=== PATIENT | female | born 1970 | race Native Hawaiian/Other Pacific Islander ===

== ENCOUNTER 2016-10-06 13:05 | Day surgery (SDC) | payer OTHER, BC ==
[2016-10-06] MEDS ORDERED: LACTATED RINGERS 1,000 ML IV ONE (13:38)
[2016-10-06] MEDS ORDERED: ONDANSETRON 4 MG/2 ML VIAL ONE (13:47)
[2016-10-06] MEDS ORDERED: MIDAZOLAM 2 MG/2 ML VIAL IVP ONE (15:21)
[2016-10-06] MEDS ORDERED: fentaNYL 250 MCG/5 ML VIAL IVP ONE (15:21)
== END 2016-10-06 13:06 | disposition home or self-care (01) ==
PROC: 0DJD8ZZ Inspection of Lower Intestinal Tract, Via Natural or Artificial Opening Endoscopic (ICD-10-PCS; principal; 2016-10-06 14:15)
DX: Z12.11 Encounter for screening for malignant neoplasm of colon (principal); Z86.010 Personal history of colon polyps; I10 Essential (primary) hypertension; Z88.0 Allergy status to penicillin
CPT/HCPCS: 45378; J3010; J7120

== ENCOUNTER 2017-03-07 05:13 | Emergency (ER) | payer BC, OTHER ==
[2017-03-07 05:42] LABS: BASOPHILS # (AUTO) 0.2 10^3/uL (0.0-0.1); BASOPHILS % (AUTO) 2.3 %; EOSINOPHILS # (AUTO) 0.4 10^3/uL (0.0-0.7); EOSINOPHILS % (AUTO) 4.8 %; HGB - HEMOGLOBIN 14.1 g/dL (12.0-16.0); LYMPHOCYTES # (AUTO) 4.1 10^3/uL (1.5-3.5); LYMPHOCYTES % (AUTO) 47.4 %; MEAN CORPUSCULAR HEMOGLOBIN 28.5 pg (27.0-31.0); MEAN CORPUSCULAR HGB CONC 33.5 g/dL (32.0-36.0); MEAN CORPUSCULAR VOLUME 85.2 fL (81.0-99.0); MONOCYTES # (AUTO) 0.9 10^3/uL (0.0-1.0); NEUTROPHILS % (AUTO) 35.5 %; RED BLOOD COUNT 4.93 10^6/uL (4.20-5.40); RED CELL DISTRIBUTION WIDTH 13.5 % (12.0-15.0); UNCORRECTED WHITE BLOOD COUNT 8.5 x10^3/uL; WHITE BLOOD COUNT 8.5 x10^3/uL (4.8-10.8)
[2017-03-07 05:49] LABS: ALBUMIN/GLOBULIN RATIO 1.3 (1.0-2.2); BILIRUBIN,TOTAL < 0.2 mg/dL (0.2-1.0); BUN - BLOOD UREA NITROGEN 12 mg/dL (6-20); CALCIUM 8.9 mg/dL (8.5-10.3); CARBON DIOXIDE - CO2 28 mmol/L (21-32); CHLORIDE 103 mmol/L (101-111); CREATININE 0.9 mg/dL (0.4-1.0); GFR - MDRD 67 (>89); GLUCOSE 119 mg/dL (70-100); LIPASE 28 U/L (22-51); POTASSIUM 3.5 mmol/L (3.5-5.0); SODIUM 139 mmol/L (135-145); TOTAL PROTEIN 7.2 g/dL (6.7-8.2)
[2017-03-07] MEDS ORDERED: HYDROmorphone 1 MG/ML SYRINGE IVP STA (05:49)
[2017-03-07] MEDS ORDERED: ONDANSETRON 4 MG/2 ML VIAL IVP STA (05:49)
[2017-03-07] MEDS ORDERED: ONDANSETRON 4 MG/2 ML VIAL ONE (05:55)
[2017-03-07] MEDS ORDERED: HYDROmorphone 1 MG/ML SYRINGE ONE (05:55)
--- NOTE | 2017-03-07 05:59 | ED Physician Documentation ---
PD HPI ABD PAIN - Stated complaint Stated Complaint: ABDOMINAL PAIN - Chief complaint Chief Complaint: Abd Pain - History obtained from History obtained from: Patient, Family - History of Present Illness Timing - onset: Enter time (329), Today Timing - duration: Hours Timing - details: Abrupt onset, Still present Quality: Cramping, Sharp, Pain Location: Periumbilical Improved by: Laying still Worsened by: Moving, Breathing, Position, Palpation Associated symptoms: No: Fever, Nausea, Vomiting, Diarrhea, Constipation Similar symptoms before: Has not had sx before Recently seen: Not recently seen - Additional information Additional information: 46 y/o female previously well awoke at 330 am this morning when she rolled over in bed and felt a sudden tearing in her mid abdomen. She felt like her muscles and the pain was severe. She has had persistent pain since and she has worse pain when she is sitting up. She has not had vomiting or diarrhea and was well yesterday. She did do some work with her on a fence and she did put a bale of hay in the truck and she did not have symptoms when she was doing this. Review of Systems Constitutional: denies: Fever, Chills, Myalgias Eyes: denies: Decreased vision Ears: denies: Ear pain Nose: denies: Rhinorrhea / runny nose, Congestion Throat: denies: Sore throat Cardiac: denies: Chest pain / pressure, Palpitations Respiratory: denies: Dyspnea, Cough GI: reports: Abdominal Pain. 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 - Present Medications Home Medications: Ambulatory Orders Medication Instructions Recorded Confirmed Metoprolol Succinate 25 mg PO DAILY 10/06/16 03/07/17 - Allergies Allergies/Adverse Reactions: Allergies Allergy/AdvReac Type Severity Reaction Status Date / Time Penicillins AdvReac Itching Verified 03/07/17 05:23 - Social History Does the pt smoke?: No Smoking Status: Never smoker Does the pt drink ETOH?: Yes Does the pt have substance abuse?: No - Immunizations Immunizations are current?: Yes - POLST Patient has POLST: No PD ED PE NORMAL - Vitals Vital signs reviewed: Yes (hypertensive ) - General General: Alert and oriented X 3, No acute distress, Well developed/nourished - HEENT HEENT: Atraumatic, PERRL, EOMI - Neck Neck: Supple, no meningeal sign - Cardiac Cardiac: RRR, No murmur - Respiratory Respiratory: No respiratory distress, Clear bilaterally - Abdomen Abdomen: Soft, Other (There is epigastric tenderness and specific tenderness to the periumbilical area. There is + murphys sign and there is no palpable hernia defect. The area is tender specifically There is no flank tenderness to bimanual palpation of either kidney. ) - Back Back: No CVA TTP, No spinal TTP - Derm Derm: Normal color, Warm and dry, No rash - Extremities Extremities: No deformity, No edema - Neuro Neuro: No motor deficit, No sensory deficit - Psych Psych: Normal mood, Normal affect Results - Vitals Vitals: Vital Signs - 24 hr 03/07/17 03/07/17 05:20 06:30 Temperature 36.6 C Heart Rate 75 73 Respiratory 18 18 Rate Blood Pressure 164/97 H 156/93 H O2 Saturation 99 93 Oxygen O2 Source Room air - Labs Labs: Laboratory Tests 03/07/17 03/07/17 03/07/17 05:29 05:29 06:41 WBC 8.5 RBC 4.93 Hgb 14.1 Hct 42.0 MCV 85.2 MCH 28.5 MCHC 33.5 RDW 13.5 Plt Count 301 MPV 8.0 Neut # 3.0 Lymph # 4.1 H [place] # 0.9 Eos # 0.4 Baso # 0.2 H Absolute Nucleated RBC 0.00 Nucleated RBCs 0.0 Sodium 139 Potassium 3.5 Chloride 103 Carbon Dioxide 28 Anion Gap 8.0 BUN 12 Creatinine 0.9 Estimated GFR (MDRD) 67 L Glucose 119 H Calcium 8.9 Total Bilirubin < 0.2 L AST 17 ALT 22 Alkaline Phosphatase 69 Total Protein 7.2 Albumin 4.1 Globulin 3.1 Albumin/Globulin Ratio 1.3 Lipase 28 Urine Color YELLOW Urine Clarity CLEAR Urine pH 6.0 Ur Specific [place] 1.010 Urine Protein NEGATIVE Urine Glucose (UA) NEGATIVE Urine Ketones NEGATIVE Urine Occult Blood NEGATIVE Urine Nitrite NEGATIVE Urine Bilirubin NEGATIVE Urine Urobilinogen 0.2 (NORMAL) Ur Leukocyte Esterase NEGATIVE Ur Microscopic Review NOT INDICATED Urine Culture Comments NOT INDICATED Urine HCG, Qual NEGATIVE - Rads (name of study) CT abdomen and pelvis with Radiology: Prelim report reviewed (Impression: 1. No acute inflammatory or obstructive process in the pelvis. 2. Cholelithiasis. 3. Mild fatty liver. 4. Fibroid uterus.), EMP read indepedently, See rad report pelvic ultrasound Radiology: Prelim report reviewed (Impression: 1. Mildly enlarged myomatous uterus. 2. Normal ovaries.), EMP read indepedently, See rad report Procedures - Bedside sono Bedside sono by EMP: with the use of bedside ultrasound there is a lot of gas and what is seen of the gallbladder is unremarkable but not entirely visualized and the gallbladder is sonographically tender. PD MEDICAL DECISION MAKING - ED course Complexity details: reviewed old records, reviewed results, re-evaluated patient , considered differential, d/w patient, d/w family ED course: 46 y/o female with acute episode of severe pain has poorly localized pain and pain on exam is RUQ and periumbilical and is not reproducible. Her description of the pain is dramatic. A concern for adriana-umbilical hernia is considered and CT shows stones in the gallbladder and a large fibroid uterus. After medication the patient has no RUQ pain but she does have suprapubic pain and an ultrasound of the pelvis is obtained. The pain resolves completely and I have recommended to the patient that she had an ultrasound of the gallbladder done as an outpatient and followup with the surgeon. Departure - Departure Disposition: 01 Home, Self Care Clinical Impression: Cholelithiasis Qualifiers: Cholelithiasis location: gallbladder Cholecystitis presence: without cholecystitis Biliary obstruction: without biliary obstruction Qualified Code(s) : K80.20 - Calculus of gallbladder without cholecystitis without obstruction Condition: Stable Instructions: ED Gallstone W Biliary Colic Follow-Up: Kenyatta Suazo PA-C [Primary Care Provider] - Stewart Ty MD [Provider Admit Priv/Credential] - Comments: You will need to follow up with Kenyatta Suazo to get requisition for outpatient ultrasound of the gallbladder.
[2017-03-07] MEDS ORDERED: IOPAMIDOL-300 100 ML VIAL IVP ONE (06:48)
[2017-03-07 06:54] LABS: BILIRUBIN,URINE NEGATIVE (NEGATIVE)
--- NOTE | 2017-03-07 06:55 | CT Preliminary Report ---
Exam: CT Abdomen/Pelvis W/ IMPRESSION: 1. No acute inflammatory or obstructive process seen in the abdomen or pelvis. 2. Cholelithiasis. 3. Mildly fatty liver. 4. Fibroid uterus. [facility] SITE ID: [id number]
[2017-03-07 06:56] LABS: HCG UR QUAL NEGATIVE; UA CHARGE (STRIP ONLY) YES; UR CULTURE IF IND NOT INDICATED
--- NOTE | 2017-03-07 06:58 | CT Report ---
EXAM: CT ABDOMEN AND PELVIS EXAM DATE: 03/07/2017 06:41 AM. CLINICAL HISTORY: Midline tearing abdominal pain . COMPARISONS: Pelvic ultrasound 08/23/2016. TECHNIQUE: Routine helical CT imaging was performed through the abdomen and pelvis. IV contrast: Yes . Enteric contrast: No . Reconstructions: Coronal and sagittal. In accordance with CT protocol optimization, one or more of the following dose reduction techniques w ere utilized for this exam: automated exposure control, adjustment of mA and/or KV based on patient s ize, or use of iterative reconstructive technique. FINDINGS: Lung Bases: Unremarkable. Liver: Fatty. No suspicious masses. Gallbladder/Bile Ducts: Suspect small gallstones without evidence of cholecystitis or biliary ductal dilatation. Spleen: Unremarkable. Pancreas: Unremarkable. Adrenal Glands: Unremarkable. Kidneys: Unremarkable. No suspicious masses or hydronephrosis. Peritoneal Cavity/Bowel: No bowel obstruction or inflammatory process seen. No free air or significan t free fluid. No masses or adenopathy. The appendix is normal. No excessive stool burden. Pelvic Organs: Bladder, uterus, and adnexa appear unremarkable with exception of multiple uterine fib roids measuring up to 5 cm on the left. Vasculature: No aneurysms or other significant abnormality. Bones: No significant abnormality with note of mild scoliosis. Other: None. IMPRESSION: 1. No acute inflammatory or obstructive process seen in the abdomen or pelvis. 2. Cholelithiasis. 3. Mildly fatty liver. 4. Fibroid uterus. [facility] Referring Provider Line: [phone] SITE ID: [id number]
--- NOTE | 2017-03-07 08:32 | Ultrasound Preliminary Report ---
Exam: US Pelvic w/Transvaginal IMPRESSION: 1. Mildly enlarged myomatous uterus. 2. Normal ovaries. [facility] SITE ID: [id number]
--- NOTE | 2017-03-07 08:34 | Ultrasound Report ---
EXAM: PELVIC ULTRASOUND EXAM DATE: 03/07/2017 08:05 AM. CLINICAL HISTORY: Pelvic mass and pain. G2, P 2. COMPARISON: 03/07/2017. 08/23/2016. TECHNIQUE: Realtime transabdominal pelvic scan performed to identify the uterus and adnexa and as an overview of other pelvic structures, followed by transvaginal scan to provide greater detail of the u terus and adnexa, with static image documentation. FINDINGS: Uterus: 9.7 x 5.4 x 7.2 cm, volume 197 cc. Anteverted position. Enlarged. Heterogeneous. Masses: Numerous uterine myomas are noted. The best delineated as described below: 1. Posterior transmural, 3.9 x 3.6 x 3.2 cm. 2. Posterior intramural/subserosal, 4.5 x 3.3 x 3.6 cm. 3. Anterior intramural/subserosal, 3.3 x 3.5 x 2.6cm. Endometrium: 4-5 mm. Homogeneous echotexture. Cervix: Clusters of cysts are seen in the cervix measuring overall size 2.1 x 1.6 x 1.0 cm representi ng nabothian cyst. Right Ovary: 3.4 x 1.8 x 1.6 cm, volume 5.1 cc. Normal echotexture and blood flow. Left Ovary: 3.4 x 2.3 x 1.8 cm, volume 7.3 cc. Normal echotexture and blood flow. Free Fluid: None. Other: None. IMPRESSION: 1. Mildly enlarged myomatous uterus. 2. Normal ovaries. [facility] Referring Provider Line: [phone] SITE ID: [id number]
[2017-03-07 08:51] VITALS: BP 160/100
== END 2017-03-07 08:47 | disposition home or self-care (01) ==
LOC: ED 05:13
DX: K80.20 Calculus of gallbladder without cholecystitis without obstruction (principal); D25.9 Leiomyoma of uterus, unspecified; I10 Essential (primary) hypertension
CPT/HCPCS: 36415; 74177; 76830; 76856; 80053; 81003; 81025; 83690; 85025; 96374; 96375; 99283; 99285; J1170; Q9967; 81001; 87086

== ENCOUNTER 2017-03-17 08:11 | Outpatient (CLI) | payer OTHER ==
--- NOTE | 2017-03-17 10:29 | Ultrasound Report ---
REVISED: THIS REPORT WAS ORIGINALLY SIGNED ON 03/17/2017 @ 1109. ORDERS LINKED ON 04/11/2017. RIGHT UPPER QUADRANT ULTRASOUND WITH DOPPLER: 03/17/2017 CLINICAL INDICATION: Pain. TECHNIQUE: Ultrasound of the right upper quadrant was performed, with Doppler of the main portal vein. FINDINGS: The liver measures 16.3 cm. Hepatic echogenicity is increased, compatible with fatty infiltration. The main portal vein demonstrates hepatopetal flow. No focal hepatic lesion is seen. The gallbladder demonstrates sludge. No definite calculus is identified. No wall thickening or pericholecystic fluid is present. The common bile duct measures 5 mm. The right kidney measures 12.2 cm, and demonstrates no hydronephrosis. No free fluid is present. IMPRESSION: FATTY INFILTRATION OF THE LIVER. SLUDGE WITHIN THE GALLBLADDER, BUT NO EVIDENCE OF CHOLELITHIASIS OR BILIARY OBSTRUCTION. JOB #: [id number] EXT JOB #: [id number] [facility]
== END 2017-03-17 08:12 | disposition home or self-care (01) ==
LOC: DI 08:11
PROVIDERS: ATTEND Physician Assistant Medical
DX: K76.0 Fatty (change of) liver, not elsewhere classified (principal)
CPT/HCPCS: 76705; 93976

== ENCOUNTER 2017-07-12 09:21 | Outpatient (CLI) | payer OTHER ==
[2017-07-12 10:17] LABS: BASOPHILS # (AUTO) 0.1 10^3/uL (0.0-0.1); BASOPHILS % (AUTO) 1.8 %; EOSINOPHILS # (AUTO) 0.2 10^3/uL (0.0-0.7); EOSINOPHILS % (AUTO) 3.9 %; HCT - HEMATOCRIT 44.5 % (37.0-47.0); HGB - HEMOGLOBIN 14.7 g/dL (12.0-16.0); LYMPHOCYTES # (AUTO) 2.3 10^3/uL (1.5-3.5); LYMPHOCYTES % (AUTO) 37.7 %; MEAN CORPUSCULAR HEMOGLOBIN 27.9 pg (27.0-31.0); MEAN CORPUSCULAR HGB CONC 33.1 g/dL (32.0-36.0); MEAN CORPUSCULAR VOLUME 84.3 fL (81.0-99.0); MEAN PLATELET VOLUME 7.9 fL (7.9-10.8); MONOCYTES # (AUTO) 0.5 10^3/uL (0.0-1.0); MONOCYTES % (AUTO) 7.8 %; NEUTROPHILS % (AUTO) 48.8 %; NUCLEATED RED BLOOD CELLS AUTO 0.1 /100WBC; RED BLOOD COUNT 5.28 10^6/uL (4.20-5.40); RED CELL DISTRIBUTION WIDTH 13.8 % (12.0-15.0); UNCORRECTED WHITE BLOOD COUNT 6.2 x10^3/uL; WHITE BLOOD COUNT 6.2 x10^3/uL (4.8-10.8)
[2017-07-12 10:37] LABS: ALBUMIN/GLOBULIN RATIO 1.5 (1.0-2.2); BILIRUBIN,TOTAL 0.7 mg/dL (0.2-1.0); BUN - BLOOD UREA NITROGEN 12 mg/dL (6-20); CALCIUM 9.2 mg/dL (8.5-10.3); CARBON DIOXIDE - CO2 28 mmol/L (21-32); CHLORIDE 104 mmol/L (101-111); CHOL/HDL RATIO 4.2 (<4.4); CHOLESTEROL 227 mg/dL; CREATININE 0.8 mg/dL (0.4-1.0); GFR - MDRD 77 (>89); GLUCOSE 104 mg/dL (70-100); HDL CHOLESTEROL 54 mg/dL; LDL/HDL RATIO 2.4 (<4.4); POTASSIUM 4.1 mmol/L (3.5-5.0); SODIUM 139 mmol/L (135-145); TOTAL PROTEIN 7.5 g/dL (6.7-8.2); TRIGLYCERIDES 207 mg/dL; VLDL CHOLESTEROL 41 mg/dL
[2017-07-12 10:45] LABS: HEMOGLOBIN A1C 0.73 g/dL
== END 2017-07-12 09:22 | disposition home or self-care (01) ==
LOC: LAB 09:21
PROVIDERS: ATTEND Physician Assistant Medical
DX: Z00.00 Encounter for general adult medical examination without abnormal findings (principal); R73.9 Hyperglycemia, unspecified; I10 Essential (primary) hypertension; Z79.899 Other long term (current) drug therapy
CPT/HCPCS: 36415; 80053; 80061; 83036; 84443; 85025

== ENCOUNTER 2017-07-13 15:54 | Outpatient (CLI) | payer OTHER ==
[2017-07-13 16:21] LABS: H. PYLORI IGG ANTIBODY Negative (Negative); HPYLORI NEG QC Negative (Negative); HPYLORI POS QC POSITIVE (Positive)
== END 2017-07-13 15:55 | disposition home or self-care (01) ==
LOC: LAB 15:54
PROVIDERS: ATTEND Radiology Diagnostic Radiology
DX: R10.11 Right upper quadrant pain (principal)
CPT/HCPCS: 36415; 85651; 86140; 87339

== ENCOUNTER 2017-07-15 08:54 | Outpatient (CLI) | payer OTHER ==
[2017-07-15] MEDS ORDERED: SINCALIDE 5 MCG VIAL ONE (09:37)
--- NOTE | 2017-07-15 11:58 | Nuclear Medicine Prelim Report ---
Exam: NM HEPATOBILIARY HIDA W/ RX IMPRESSION: 1. Patent cystic duct. 2. Patent common bile duct. 3. Negative for acute or chronic cholecystitis. 4. No enterogastric bile reflux. 5. Normal gallbladder ejection fraction of 68%. DONOVAN The call report notification system was initiated by Dr. Ricardo Hobbs at 11:50 hrs on 07/15/17. The above findings were discussed with Dr. Spencer's medical assistant cardiology by Dr. Ricardo Hobbs at 11:56 hrs on 07/15/17. SITE ID: [id number]
--- NOTE | 2017-07-15 12:00 | Nuclear Medicine Report ---
EXAM: HEPATOBILIARY SCAN WITH CCK/KINEVAC ADMINISTRATION EXAM DATE: 07/15/2017 09:17 AM. CLINICAL HISTORY: RUQ ABDOMINAL PAIN. COMPARISON: Ultrasound exam dated 03/17/2017. TECHNIQUE: Following the intravenous administration of 5.3 mCi of Tc99m Mebrofenin, a hepatobiliary s can was done centered on the liver and gallbladder in multiple sequential images and projections. Following the intravenous administration of 1.9 mcg of CCK/ Kinevac over the course of approximately 60 minutes, dynamic imaging was done and the gallbladder ejection fraction was calculated. FINDINGS: Normal extraction of tracer from the blood pool indicating normal hepatocellular function. The liver size and shape is grossly within normal limits. There is activity visualized within the bile ducts and gallbladder within the first hour. Small bowel activity not visualized until after CCK was administered. With CCK administration, the gallbladder demonstrates an effective contraction. The gallbladder eject ion fraction is calculated to be 78%, well above the lower limit of normal of 38% for a 60-minute inj ection. The patient did not report symptoms after CCK administration. No evidence of enteric reflux into the stomach. No significant collection of tracer remaining in the common bile duct by the end of the study. IMPRESSION: 1. Patent cystic duct. 2. Patent common bile duct. 3. Negative for acute or chronic cholecystitis. 4. No enterogastric bile reflux. 5. Normal gallbladder ejection fraction of 68%. [facility] The call report notification system was initiated by Dr. Ricardo Hobbs at 11:50 hrs on 07/15/17. The above findings were discussed with Dr. Spencer's medical office asst by Dr. Ricardo Hobbs at 11:56 hrs on 07/15/17. Referring Provider Line: [phone] SITE ID: [id number]
== END 2017-07-15 08:55 | disposition home or self-care (01) ==
LOC: DI 08:54
PROVIDERS: ATTEND Surgery
DX: R10.11 Right upper quadrant pain (principal)
CPT/HCPCS: 78227; A9537

== ENCOUNTER 2017-11-22 12:49 | Emergency (ER) | payer OTHER ==
--- NOTE | 2017-11-22 14:21 | ED Physician Documentation ---
PD HPI CHEST PAIN - Stated complaint Stated Complaint: PX IN CHEST/TINGLE IN ARM - Chief complaint Chief Complaint: Cardiac - History obtained from History obtained from: Patient - History of Present Illness Timing - onset: Enter time (1030) Timing - onset during: Light activity Timing - duration: Hours Timing - details: Gradual onset, Now resolved Quality: Throbbing Location: Substernal Radiation: Left upper extremity Improved by: Nothing Worsened by: Other (nothing) Associated symptoms: No: Shortness of air, Diaphoresis, Nausea, Vomiting, Feeling faint / dizzy, General Weakness, Palpitations, Cough Similar symptoms before: Has not had sx before Recently seen: Not recently seen - Additional information Additional information: 47-year-old female has developed some palpitation substernal today while she was sitting at her desk. When she felt that her fingers were numb she told a coworker and she is come to the hospital. She states that she had this sensation for about 2 hours before deciding to come to the hospital and since being here this is resolved. She also notes that she feels out of shape. 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 - Present Medications Home Medications: Ambulatory Orders Medication Instructions Recorded Confirmed Metoprolol Succinate 25 mg PO DAILY 10/06/16 11/22/17 - Allergies Allergies/Adverse Reactions: Allergies Allergy/AdvReac Type Severity Reaction Status Date / Time Penicillins AdvReac Respiratory Verified 11/22/17 13:53 - Social History Does the pt smoke?: No Smoking Status: Never smoker Does the pt drink ETOH?: Yes Does the pt have substance abuse?: No - Immunizations Immunizations are current?: Yes - POLST Patient has POLST: No PD ED PE NORMAL - Vitals Vital signs reviewed: Yes (hypertensive) - General General: Alert and oriented X 3, No acute distress, Well developed/nourished - HEENT HEENT: Atraumatic, PERRL, EOMI, Ears normal, Moist mucous membranes - Neck Neck: Supple, no meningeal sign, No bony TTP - Cardiac Cardiac: RRR, No murmur - Respiratory Respiratory: No respiratory distress, Clear bilaterally - Abdomen Abdomen: Soft, Non tender - Back Back: No CVA TTP, No spinal TTP - Derm Derm: Normal color, Warm and dry, No rash - Extremities Extremities: No deformity, No edema - Neuro Neuro: No motor deficit, No sensory deficit Eye Opening: Spontaneous Motor: Obeys Commands Verbal: Oriented GCS Score: 15 - Psych Psych: Normal mood, Normal affect Results - Vitals Vitals: Vital Signs - 24 hr 11/22/17 11/22/17 12:58 16:45 Temperature 37.2 C Heart Rate 79 74 Respiratory 18 Rate Blood Pressure 175/98 H 121/69 O2 Saturation 100 96 Oxygen O2 Source Room air - EKG (time done) 1256 Rate: Rate (enter#) (71) Rhythm: NSR Ischemia: Normal ST segments Compare to prior EKG: Old EKG unavailable Computer interpretation: Agree with computer - Labs Labs: Laboratory Tests 11/22/17 11/22/17 11/22/17 14:40 14:40 14:40 WBC 7.5 RBC 4.84 Hgb 13.9 Hct 41.0 MCV 84.7 MCH 28.7 MCHC 33.9 RDW 13.2 Plt Count 280 MPV 7.9 Neut # 3.7 Lymph # 2.7 [place] # 0.6 Eos # 0.2 Baso # 0.2 H Absolute Nucleated RBC 0.00 Nucleated RBC % 0.0 Sodium 137 Potassium 4.1 Chloride 103 Carbon Dioxide 26 Anion Gap 8.0 BUN 11 Creatinine 0.8 Estimated GFR (MDRD) 77 L Glucose 100 Calcium 9.1 Total Bilirubin 0.4 AST 20 ALT 27 Alkaline Phosphatase 58 Troponin I < 0.04 Total Protein 7.2 Albumin 4.3 Globulin 2.9 Albumin/Globulin Ratio 1.5 Lipase 29 Urine Color Urine Clarity Urine pH Ur Specific [place] Urine Protein Urine Glucose (UA) Urine Ketones Urine Occult Blood Urine Nitrite Urine Bilirubin Urine Urobilinogen Ur Leukocyte Esterase Ur Microscopic Review Urine Culture Comments Urine HCG, Qual 11/22/17 11/22/17 15:01 16:11 WBC RBC Hgb Hct MCV MCH MCHC RDW Plt Count MPV Neut # Lymph # [place] # Eos # Baso # Absolute Nucleated RBC Nucleated RBC % Sodium Potassium Chloride Carbon Dioxide Anion Gap BUN Creatinine Estimated GFR (MDRD) Glucose Calcium Total Bilirubin AST ALT Alkaline Phosphatase Troponin I < 0.04 Total Protein Albumin Globulin Albumin/Globulin Ratio Lipase Urine Color STRAW Urine Clarity CLEAR Urine pH 6.0 Ur Specific [place] 1.010 Urine Protein NEGATIVE Urine Glucose (UA) NEGATIVE Urine Ketones NEGATIVE Urine Occult Blood NEGATIVE Urine Nitrite NEGATIVE Urine Bilirubin NEGATIVE Urine Urobilinogen 0.2 (NORMAL) Ur Leukocyte Esterase NEGATIVE Ur Microscopic Review NOT INDICATED Urine Culture Comments NOT INDICATED Urine HCG, Qual NEGATIVE - Rads (name of study) 2 veiw chest Radiology: Prelim report reviewed (Impression: 1. Low lung volumes with unchanged linear basilar opacities likely reflecting atelectasis.), EMP read indepedently, See rad report Procedures - IVC sono (time) 1400 Bedside IVC sono: IVC measures (cm) (0.88), IVC collapsed c insp (cm) (complete) , Dehydration (est 2 liters.) PD MEDICAL DECISION MAKING - ED course Complexity details: reviewed results, re-evaluated patient, considered differential, d/w patient ED course: 47-year-old previously healthy female has developed some throbbing in her chest and she is found to be dehydrated and she is hypertensive. She is hydrated here in the emergency department we did not find other abnormalities in her laboratory tests x-ray or electrocardiogram.She denies alcohol withdrawal is a possibility she does not drink frequently and she usually does have water at her desk but over the past 3 days she was scrapbooking and she did not work yesterday. She believes she did not have her usual amount of water over the past 3 days. Departure - Departure Disposition: 01 Home, Self Care Clinical Impression: Atypical chest pain Condition: Stable Instructions: ED Chest Pain Atypical Unkn Cause Follow-Up: Kenyatta Suazo PA-C [Primary Care Provider] - Comments: Today we found that you are dehydrated but we did not find evidence for coronary disease. Follow-up with your primary care doctor to consider an exercise treadmill test.
[2017-11-22] MEDS ORDERED: SODIUM CHLORIDE 0.9% 1,000 ML IV ONE (14:47)
[2017-11-22 15:02] LABS: BASOPHILS # (AUTO) 0.2 10^3/uL (0.0-0.1); BASOPHILS % (AUTO) 2.4 %; EOSINOPHILS # (AUTO) 0.2 10^3/uL (0.0-0.7); EOSINOPHILS % (AUTO) 3.1 %; HGB - HEMOGLOBIN 13.9 g/dL (12.0-16.0); LYMPHOCYTES # (AUTO) 2.7 10^3/uL (1.5-3.5); LYMPHOCYTES % (AUTO) 36.8 %; MEAN CORPUSCULAR HEMOGLOBIN 28.7 pg (27.0-31.0); MEAN CORPUSCULAR HGB CONC 33.9 g/dL (32.0-36.0); MEAN CORPUSCULAR VOLUME 84.7 fL (81.0-99.0); MEAN PLATELET VOLUME 7.9 fL (7.9-10.8); MONOCYTES # (AUTO) 0.6 10^3/uL (0.0-1.0); MONOCYTES % (AUTO) 8.1 %; NEUTROPHILS # (AUTO) 3.7 10^3/uL (1.5-6.6); NEUTROPHILS % (AUTO) 49.6 %; PLT - PLATELET COUNT 280 10^3/uL (130-450); RED BLOOD COUNT 4.84 10^6/uL (4.20-5.40); RED CELL DISTRIBUTION WIDTH 13.2 % (12.0-15.0); WHITE BLOOD COUNT 7.5 x10^3/uL (4.8-10.8)
[2017-11-22 15:12] LABS: ALBUMIN 4.3 g/dL (3.2-5.5); ALBUMIN/GLOBULIN RATIO 1.5 (1.0-2.2); BILIRUBIN,TOTAL 0.4 mg/dL (0.2-1.0); CALCIUM 9.1 mg/dL (8.5-10.3); CREATININE 0.8 mg/dL (0.4-1.0); TOTAL PROTEIN 7.2 g/dL (6.7-8.2)
[2017-11-22 15:15] LABS: BILIRUBIN,URINE NEGATIVE (NEGATIVE); GLUCOSE, URINE (UA) NEGATIVE (NEGATIVE); KETONES,URINE (UA) NEGATIVE (NEGATIVE); LEUKOCYTE ESTERASE, URINE NEGATIVE (NEGATIVE); NITRITE,URINE NEGATIVE (NEGATIVE); OCCULT BLOOD,URINE NEGATIVE (NEGATIVE); PROTEIN,URINE NEGATIVE (NEGATIVE); UROBILINOGEN,URINE 0.2 (NORMAL) E.U./dL (NORMAL)
[2017-11-22 15:18] LABS: CLARITY,URINE CLEAR (CLEAR); HCG UR QUAL NEGATIVE
--- NOTE | 2017-11-22 16:16 | XRAY Report ---
EXAM: CHEST RADIOGRAPHY EXAM DATE: 11/22/2017 04:03 PM. CLINICAL HISTORY: Chest pain. COMPARISON: 10/16/2008. TECHNIQUE: 2 views. FINDINGS: Lungs/Pleura: Lung volumes are low. Unchanged linear basilar opacities, likely reflect atelectasis. N o other focal consolidation. No evidence of pleural effusion or pneumothorax. Mediastinum: Unchanged heart size and mediastinum. Other: Right convex thoracic scoliosis again seen. IMPRESSION: 1. Low lung volumes with unchanged linear basilar opacities likely reflecting atelectasis. [facility] Referring Provider Line: [phone] SITE ID: [id number]
[2017-11-22 16:45] VITALS: BP 121/69
== END 2017-11-22 17:23 | disposition home or self-care (01) ==
LOC: ED 12:49
DX: R07.89 Other chest pain (principal); E86.0 Dehydration; I10 Essential (primary) hypertension
CPT/HCPCS: 36415; 71046; 80053; 81001; 81003; 81025; 83690; 84484; 85025; 87086; 93005; 96360; 99283; 99284

== ENCOUNTER 2018-01-05 08:28 | Outpatient (CLI) | payer OTHER ==
[2018-01-05 15:25] VITALS: BP 120/78
--- NOTE | 2018-01-05 21:46 | CARDIAC PROCEDURE NOTE ---
DATE OF SERVICE: 01/05/2018 Physician: LUIS Rodriguez PRIMARY CARE PROVIDER: Kenyatta Suazo PA-C. PROCEDURE: Stress echocardiogram. PROCEDURE SYMPTOMS: Atypical chest pain and mild dyspnea on exertion. CARDIAC RISK FACTORS: Hypertension and hyperlipidemia. PREVIOUS CARDIAC PROCEDURES: Distant history of stress test. CLINICAL HISTORY: A 47-year-old sedentary woman without known coronary artery disease. Her predicted exercise time is 7 minutes, 5 seconds. There were no medications held. INITIAL RESTING VITAL SIGNS: Blood pressure 120/78, heart rate 97, height 64 inches, weight 217 pounds, BMI 37.27. PROCEDURE AND FINDINGS: Patient identity and date verified. Consent signed. After resting echocardiogram images were obtained, the patient performed treadmill exercise, using a [place] protocol, completing 9 minutes, 45 seconds, and an estimated workload of 11.5 metabolic equivalents. Maximal blood pressure was 172/70 with a heart rate of 158 beats per minute or 91% of maximum predicted heart rate for age. The patient stopped because she rated exercise as hard, and target heart rate was achieved. The resting ECG demonstrated normal sinus rhythm with no ST or T-wave changes. There was less than 0.[address] segment depression that was upsloping and no ectopy. Post-exercise images were obtained on cessation of exercise. FINAL IMPRESSION: 1. Quality of study fair. 2. One minute heart rate recovery: Heart rate 121. 3. Exceeded active predicted exercise time of 8 minutes, 20 seconds. 4. No ECG signs of ischemia, test incomplete, awaiting echocardiography report. 5. Negative stress test clinically for angina. 6. No ectopy seen. 7. Intermediate pre-test probability. Low post-test probability of coronary artery disease (Marc Treadmill Score of +7.5). TD: 01/05/2018 21:45 RO
== END 2018-01-05 08:29 | disposition home or self-care (01) ==
LOC: DI 08:28
PROVIDERS: ATTEND Physician Assistant Medical
DX: R07.89 Other chest pain (principal); E78.2 Mixed hyperlipidemia; I10 Essential (primary) hypertension
CPT/HCPCS: 93351

== ENCOUNTER 2018-01-07 18:59 | Emergency (ER) | payer OTHER ==
[2018-01-07 19:05] VITALS: BP 159/105
--- NOTE | 2018-01-07 19:44 | ED Physician Documentation ---
History of Present Illness - Stated complaint Stated Complaint: BOTH EARS PLUGGED - Chief complaint Chief Complaint: Heent - History obtained from History obtained from: Patient - History of Present Illness Timing: How many days ago (2) Pain level max: 0 Pain level now: 0 Improved by: nothing Worsened by: nothing - Additonal information Additional information: Patient is a 47-year-old female who presents to the emergency department complaining of fullness to the bilateral ears. She states that this started approximately 2 days ago and felt like it was allergies. She states started in the left ear and is now spread to the right ear. Notice clear drainage from the left ear today. Took Zyrtec without relief. Denies any fevers. Has had mild nasal congestion. No cough. No sore throat Review of Systems Constitutional: denies: Fever, Chills Respiratory: denies: Cough GI: denies: Vomiting, Diarrhea : denies: Now [facility] PD PAST MEDICAL HISTORY - Past Medical History Past Medical History: Yes Cardiovascular: Hypertension Respiratory: None Endocrine/Autoimmune: None GI: None REMARKETING REP: None : None Psych: None Musculoskeletal: None, Scoliosis Derm: None - Past Surgical History Past Surgical History: Yes General: Colonoscopy /REMARKETING REP: section - Present Medications Home Medications: Ambulatory Orders Medication Instructions Recorded Confirmed Metoprolol Succinate 25 mg PO DAILY 10/06/16 11/22/17 Neomycin/Polymyx/Hc Otic Drops 4 drops EACHEAR TID 7 Days #1 01/07/18 [Cortisporin Ear Susp] bottle - Allergies Allergies/Adverse Reactions: Allergies Allergy/AdvReac Type Severity Reaction Status Date / Time Penicillins AdvReac Respiratory Verified 01/07/18 19:05 - Social History Does the pt smoke?: No Smoking Status: Never smoker Does the pt drink ETOH?: Yes Does the pt have substance abuse?: No - Immunizations Immunizations are current?: Yes - POLST Patient has POLST: No PD ED PE NORMAL - Vitals Vital signs reviewed: Yes - General General: Alert and oriented X 3, No acute distress, Well developed/nourished - HEENT HEENT: PERRL, Moist mucous membranes, Pharynx benign, Other (Bilateral tympanic membranes are obscured by white discharge. External canals are swollen. No changes to the pinna. No mastoid tenderness.) - Neck Neck: Supple, no meningeal sign - Cardiac Cardiac: RRR, Strong equal pulses - Respiratory Respiratory: No respiratory distress, Clear bilaterally - Derm Derm: Warm and dry - Neuro Neuro: Alert and oriented X 3 - Psych Psych: Normal mood, Normal affect Results - Vitals Vitals: Vital Signs - 24 hr 01/07/18 19:02 Temperature 36.4 C L Heart Rate 79 Respiratory 16 Rate Blood Pressure 159/105 H O2 Saturation 100 Oxygen O2 Source Room air PD MEDICAL DECISION MAKING - ED course Complexity details: considered differential, d/w patient ED course: Patient is a 47-year-old female who presents to the emergency department with what appears to be bilateral otitis externa. No recent swimming. Does use Q- tips. Will place on otic eardrops and follow-up closely with her doctor. Patient counseled regarding signs and symptoms for which I believe and urgent re -evaluation would be necessary. Patient with good understanding of and agreement to plan and is comfortable going home at this time This document was made in part using voice recognition software. While efforts are made to proofread this document, sound alike and grammatical errors may occur. Departure - Departure Disposition: 01 Home, Self Care Clinical Impression: Otitis externa Qualifiers: Otitis externa type: unspecified type Chronicity: acute Laterality: bilateral Qualified Code(s): H60.503 - Unspecified acute noninfective otitis externa, bilateral Condition: Good Instructions: ED Otitis Externa Follow-Up: Kenyatta Suazo PA-C [Primary Care Provider] - Within 1 week Prescriptions: Neomycin/Polymyx/Hc Otic Drops [Cortisporin Ear Susp] 4 drops EACHEAR TID 7 Days #1 bottle Comments: Use the ear drops as prescribed. Return if you worsen. Discharge Date/Time: 01/07/18 19:49
== END 2018-01-07 19:49 | disposition home or self-care (01) ==
LOC: ED 18:59
DX: H60.503 Unspecified acute noninfective otitis externa, bilateral (principal); I10 Essential (primary) hypertension
CPT/HCPCS: 99283

== ENCOUNTER 2018-01-30 20:52 | Outpatient (CLI) | payer OTHER ==
--- NOTE | 2018-01-31 09:13 | Ultrasound Report ---
THYROID ULTRASOUND: 01/30/2018 CLINICAL INDICATION: Neoplasm of uncertain behavior. TECHNIQUE: Real-time scanning was performed with pharmaceutical service representative static images obtained. FINDINGS: The right lobe measures 5.9 x 3.2 x 2.3 cm, and the left lobe measures 5.0 x 1.6 x 1.2 cm. The isthmus measures 3 mm. The thyroid demonstrates heterogeneous background parenchyma. In the lower pole of the right lobe, there is a 3.4 x 2.6 x 2.2 cm heterogeneous nodule. There are other, smaller hypoechoic and spongiform nodules present in the right lobe. In the left lobe, there is a 1 cm cyst as well as smaller spongiform nodules. IMPRESSION: 3.4 CM NODULE IN THE LOWER POLE OF THE RIGHT LOBE OF THE THYROID. CONSIDER FINE NEEDLE ASPIRATION OF THIS DOMINANT SUSPICIOUS NODULE. TD: 01/31/2018 08:33
== END 2018-01-30 20:53 | disposition home or self-care (01) ==
LOC: DI 20:52
PROVIDERS: ATTEND Otolaryngology
DX: D44.0 Neoplasm of uncertain behavior of thyroid gland (principal); E04.1 Nontoxic single thyroid nodule
CPT/HCPCS: 76536

== ENCOUNTER 2019-09-28 07:56 | Outpatient (CLI) | payer BC ==
[2019-09-28 08:19] LABS: BASOPHILS # (AUTO) 0.1 10^3/uL (0.0-0.1); BASOPHILS % (AUTO) 1.1 %; EOSINOPHILS # (AUTO) 0.4 10^3/uL (0.0-0.7); EOSINOPHILS % (AUTO) 4.1 %; HGB - HEMOGLOBIN 14.3 g/dL (12.0-16.0); LYMPHOCYTES # (AUTO) 2.4 10^3/uL (1.5-3.5); LYMPHOCYTES % (AUTO) 27.2 %; MEAN CORPUSCULAR HEMOGLOBIN 28.3 pg (27.0-31.0); MEAN CORPUSCULAR HGB CONC 31.9 g/dL (32.0-36.0); MEAN CORPUSCULAR VOLUME 88.7 fL (81.0-99.0); MEAN PLATELET VOLUME 9.5 fL (7.9-10.8); MONOCYTES # (AUTO) 0.8 10^3/uL (0.0-1.0); MONOCYTES % (AUTO) 8.6 %; NEUTROPHILS # (AUTO) 5.2 10^3/uL (1.5-6.6); NEUTROPHILS % (AUTO) 58.7 %; PLT - PLATELET COUNT 348 10^3/uL (130-450); RED BLOOD COUNT 5.05 10^6/uL (4.20-5.40); RED CELL DISTRIBUTION WIDTH 12.8 % (12.0-15.0); WHITE BLOOD COUNT 8.9 x10^3/uL (4.8-10.8)
[2019-09-28 08:31] LABS: ALBUMIN 4.1 g/dL (3.2-5.5); ALBUMIN/GLOBULIN RATIO 1.2 (1.0-2.2); ALKALINE PHOSPHATASE 76 IU/L (42-121); ALT ALANINE AMINOTRANSFERASE 25 IU/L (10-60); AST ASPARTATE AMINOTRANSFERASE 19 IU/L (10-42); BILIRUBIN,TOTAL 0.8 mg/dL (0.2-1.0); BUN - BLOOD UREA NITROGEN 11 mg/dL (6-20); CALCIUM 8.8 mg/dL (8.5-10.3); CARBON DIOXIDE - CO2 29 mmol/L (21-32); CHLORIDE 102 mmol/L (101-111); CHOL/HDL RATIO 3.8 (<4.4); CHOLESTEROL 239 mg/dL; CREATININE 0.8 mg/dL (0.4-1.0); GFR - MDRD 76 (>89); GLUCOSE 126 mg/dL (70-100); HDL CHOLESTEROL 63 mg/dL; LDL CHOLESTEROL,CALCULATED 139 mg/dL; LDL/HDL RATIO 2.2 (<4.4); SODIUM 138 mmol/L (135-145); TOTAL PROTEIN 7.4 g/dL (6.7-8.2); VLDL CHOLESTEROL 37 mg/dL
== END 2019-09-28 07:57 | disposition home or self-care (01) ==
LOC: LAB 07:56
PROVIDERS: ATTEND Nurse Practitioner
DX: E04.1 Nontoxic single thyroid nodule (principal); Z79.899 Other long term (current) drug therapy; I10 Essential (primary) hypertension; R73.9 Hyperglycemia, unspecified; E88.81 Metabolic syndrome and other insulin resistance
CPT/HCPCS: 36415; 80053; 80061; 83721; 84443; 85025

== ENCOUNTER 2020-05-10 16:50 | Emergency (ER) | payer BC ==
[2020-05-10 17:15] VITALS: BP 148/83
[2020-05-10] MEDS ORDERED: TETANUS/DIPHTHERIA/PERTUSSIS 0.5 ML SYRINGE IM ONE (17:31)
[2020-05-10] MEDS ORDERED: AMOX/CLAV 875 MG/125 MG TABLET PO STA (17:31)
--- NOTE | 2020-05-10 17:33 | ED Physician Documentation ---
PD HPI WOUND RECHECK - Stated complaint Stated Complaint: CAT BITES/SCRATCHES - Chief complaint Chief Complaint: Wound - Histroy obtained from History obtained from: Patient (49-year-old woman with unknown tetanus status was bitten by her son's cats 2 days ago and now has redness and swelling and increased pain around some of the bite mascorro. 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: None : None Psych: None Musculoskeletal: None, Scoliosis Derm: None - Past Surgical History Past Surgical History: Yes General: Colonoscopy /PRODUCE DEPARTMENT MANAGER: section - Present Medications Home Medications: Ambulatory Orders Medication Instructions Recorded Confirmed Metoprolol Succinate 25 mg PO DAILY 10/06/16 11/22/17 Neomycin/Polymyx/Hc Otic Drops 4 drops EACHEAR TID 7 Days #1 01/07/18 [Cortisporin Ear Susp] bottle Amox/Clav 875/125 [Augmentin] 1 each PO Q12H #20 tablet 05/10/20 - Allergies Allergies/Adverse Reactions: Allergies Allergy/AdvReac Type Severity Reaction Status Date / Time Penicillins AdvReac Respiratory Verified 01/07/18 19:05 - Social History Does the pt smoke?: No Smoking Status: Never smoker Does the pt drink ETOH?: Yes Does the pt have substance abuse?: No - Immunizations Immunizations are current?: Yes - POLST Patient has POLST: No PD ED PE NORMAL - Vitals Vital signs reviewed: Yes - General General: Alert and oriented X 3, No acute distress - Extremities Extremities: Other (There are multiple puncture wounds about the left lower leg with a centimeter or a little more of surrounding cellulitis. Nothing purulent to culture.) - Neuro Neuro: Alert and oriented X 3, Normal speech Results - Vitals Vitals: Vital Signs - 24 hr 05/10/20 17:08 Temperature 37.4 C Heart Rate 106 H Respiratory 18 Rate Blood Pressure 148/83 H O2 Saturation 99 Oxygen O2 Source Room air Departure - Departure Disposition: 01 Home, Self Care Clinical Impression: Cat bite of left lower leg with infection Qualifiers: Encounter type: initial encounter Qualified Code(s): S81.852A - Open bite, left lower leg, initial encounter; L08.9 - Local infection of the skin and subcutaneous tissue, unspecified; W55.01XA - Bitten by cat, initial encounter Condition: Good Record reviewed to determine appropriate education?: Yes Instructions: Bites Scratches Animal Prescriptions: Amox/Clav 875/125 [Augmentin] 1 each PO Q12H #20 tablet Comments: Return for increasing pain, swelling, drainage, or other concerns or if not better in about 2 to 3 days. Elevate as much as possible.
== END 2020-05-10 17:50 | disposition home or self-care (01) ==
LOC: ED 16:50
DX: S81.852A Open bite, left lower leg, initial encounter (principal); L03.116 Cellulitis of left lower limb; W55.01XA Bitten by cat, initial encounter; I10 Essential (primary) hypertension; Z23 Encounter for immunization
CPT/HCPCS: 90471; 90715; 99283; A9270

== ENCOUNTER 2023-03-17 19:10 | Emergency (ER) | payer BC, OTHER ==
[2023-03-17 19:31] VITALS: BP 180/94
[2023-03-17 19:48] LABS: BASOPHILS # (AUTO) 0.1 10^3/uL (0.0-0.1); BASOPHILS % (AUTO) 1.4 %; EOSINOPHILS # (AUTO) 0.3 10^3/uL (0.0-0.7); EOSINOPHILS % (AUTO) 3.9 %; HCT - HEMATOCRIT 44.5 % (37.0-47.0); HGB - HEMOGLOBIN 14.5 g/dL (12.0-16.0); LYMPHOCYTES # (AUTO) 3.8 10^3/uL (1.5-3.5); LYMPHOCYTES % (AUTO) 43.4 %; MEAN CORPUSCULAR HEMOGLOBIN 28.8 pg (27.0-31.0); MEAN CORPUSCULAR HGB CONC 32.6 g/dL (32.0-36.0); MEAN CORPUSCULAR VOLUME 88.5 fL (81.0-99.0); MEAN PLATELET VOLUME 9.7 fL (7.9-10.8); MONOCYTES # (AUTO) 0.8 10^3/uL (0.0-1.0); MONOCYTES % (AUTO) 8.5 %; NEUTROPHILS # (AUTO) 3.8 10^3/uL (1.5-6.6); NEUTROPHILS % (AUTO) 42.6 %; PLT - PLATELET COUNT 331 10^3/uL (130-450); RED BLOOD COUNT 5.03 10^6/uL (4.20-5.40); RED CELL DISTRIBUTION WIDTH 12.7 % (12.0-15.0); WHITE BLOOD COUNT 8.8 x10^3/uL (4.8-10.8)
--- NOTE | 2023-03-17 19:50 | ED Physician Documentation ---
History of Present Illness - Stated complaint Stated Complaint: ABD PX - Chief complaint Chief Complaint: Abd Pain - Additonal information Additional information: 52-year-old female presents emergency department for evaluation of sudden onset periumbilical pain that began just prior to arrival. She states that she was sitting when she felt sudden pain in her umbilical region. She felt like it was swollen. She was unable to remain sitting due to the pain and had to lay flat. She had similar episode of pain number of years ago for which the work-up was negative. Denies any recent illness, fevers, nausea, vomiting or urinary sympto ms. Review of Systems GI: reports: Reviewed and negative. denies: Nausea, Vomiting, Constipation, Hematemesis, Bloody / black stool : reports: Reviewed and negative PD PAST MEDICAL HISTORY - Past Medical History Cardiovascular: Hypertension Respiratory: None Endocrine/Autoimmune: None GI: None SWEAT BAND SEWER: None : None Psych: None Musculoskeletal: None, Scoliosis Derm: None - Past Surgical History Past Surgical History: Yes General: Colonoscopy /SWEAT BAND SEWER: section - Present Medications Home Medications: Ambulatory Orders Medication Instructions Recorded Confirmed Metoprolol Succinate 25 mg PO DAILY 10/06/16 03/17/23 - Allergies Allergies/Adverse Reactions: Allergies Allergy/AdvReac Type Severity Reaction Status Date / Time Penicillins AdvReac Respiratory Verified 03/17/23 19:31 - Social History Does the pt smoke?: No Smoking Status: Never smoker Does the pt drink ETOH?: Yes Does the pt have substance abuse?: No - Immunizations Immunizations are current?: Yes - POLST Patient has POLST: No PD ED PE NORMAL - General General: Alert and oriented X 3. No: No acute distress (Appears uncomfortable in pain and holding her mid abdomen) - Cardiac Cardiac: RRR, No murmur - Respiratory Respiratory: No respiratory distress, Clear bilaterally - Abdomen Abdomen: Normal bowel sounds, Soft, Other (There is an umbilical hernia which is obvious on initial exam and was easily reduced by this provider at bedside nearly fully resolving the pain) - Derm Derm: Normal color, Warm and dry, No rash Results - Vitals Vitals: Vital Signs - 24 hr 03/17/23 03/17/23 19:25 19:31 Temperature 36.0 C L Heart Rate 69 Respiratory 19 20 Rate Blood Pressure 180/94 H O2 Saturation 100 Oxygen O2 Source Room air - Labs Labs: Laboratory Tests 03/17/23 03/17/23 03/17/23 19:43 19:43 19:43 WBC 8.8 RBC 5.03 Hgb 14.5 Hct 44.5 MCV 88.5 MCH 28.8 MCHC 32.6 RDW 12.7 Plt Count 331 MPV 9.7 Neut # (Auto) 3.8 Lymph # (Auto) 3.8 H [place] # (Auto) 0.8 Eos # (Auto) 0.3 Baso # (Auto) 0.1 Absolute Nucleated RBC 0.00 Nucleated RBC % 0.0 Sodium 139 Potassium 3.5 Chloride 102 Carbon Dioxide 28 Anion Gap 9.0 BUN 14 Creatinine 0.9 Estimated GFR (MDRD) 65 L Glucose 140 H Calcium 9.3 Total Bilirubin 0.5 AST 21 ALT 20 Alkaline Phosphatase 68 Total Protein 7.6 Albumin 4.1 Globulin 3.5 Albumin/Globulin Ratio 1.2 Lipase 41 Serum HCG, Qual NEGATIVE - Rads (name of study) Ct abd Relevant Findings:: Final report received (Trace fat-containing ventral hernia. Hepatomegaly with steatosis) PD Medical Decision Making - ED course Complexity details: reviewed results, re-evaluated patient, considered differential, d/w patient ED course: 52-year-old female presents emergency department for evaluation of sudden severe periumbilical pain that began at home when she was sitting. She had some nausea but no vomiting. The pain was so exquisite she presented to the emergency department right after the pain event. On exam she had an obvious periumbilical hernia that was easily reduced at the bedside with full resolution of pain at that point. I did obtain routine CBC and electrolytes which showed no acute findings. However given the likelihood of surgery in the future I did obtain a CT of the abdomen which does show a trace fat-containing ventral hernia. At this time patient is pain-free and she is stable for discharge home. We discussed usual measures to reduce hernias should the pain began again. She will request referral to general surgery from her primary care doctor. Usual emergent return precautions for worsening symptoms was discussed. Departure - Departure Disposition: 01 Home, Self Care Clinical Impression: Umbilical hernia Qualifiers: Obstruction and gangrene presence: without obstruction or gangrene Qualified Code(s): K42.9 - Umbilical hernia without obstruction or gangrene Condition: Stable Record reviewed to determine appropriate education?: Yes Comments: You came to the emergency department because she developed sudden pain across her bellybutton and there was some obvious swelling there. This was sign of a hernia. When we laid you flat I placed gentle pressure on the hernia and was able to easily reduce it. If you find they have a similar recurrence of the pain lay on a flat surface, relax your abdomen and then placed gentle pressure on your hernia and you should feel resistance as it gets reduced. Please discuss this ED visit with your primary care provider. You should obtain referral to surgery for further evaluation and management of the hernia. Reasons to return to the emergency department would include sudden severe pain that you are not able to reduce, fevers, uncontrolled nausea and vomiting or black or bloody stools.
[2023-03-17 20:02] LABS: ALBUMIN 4.1 g/dL (3.2-5.5); ALBUMIN/GLOBULIN RATIO 1.2 (1.0-2.2); BILIRUBIN,TOTAL 0.5 mg/dL (0.2-1.0); CALCIUM 9.3 mg/dL (8.5-10.3); CREATININE 0.9 mg/dL (0.4-1.0); POTASSIUM 3.5 mmol/L (3.5-5.0); TOTAL PROTEIN 7.6 g/dL (6.7-8.2)
[2023-03-17 20:10] LABS: HCG,QUALITATIVE BLOOD NEGATIVE
[2023-03-17] MEDS ORDERED: iohexoL-300 100 ML VIAL ONE (20:11)
[2023-03-17] MEDS ORDERED: iohexoL-300 100 ML VIAL IVP ONE (20:28)
--- NOTE | 2023-03-17 20:46 | CT Report ---
PROCEDURE: ABDOMEN/PELVIS W INDICATIONS: ? incarcerated periumbilical hernia CONTRAST: 100mL Omni 300 TECHNIQUE: After the administration of IV contrast, 5 mm thick sections acquired from the diaphragms to the symp hysis. 5 mm thick coronal and sagittal reformats were acquired. For radiation dose reduction, the f ollowing was used: automated exposure control, adjustment of mA and/or kV according to patient size. COMPARISON: CT abdomen pelvis 03/07/2017, ultrasound abdomen 04/11/2017 FINDINGS: Image quality: Excellent. Lung bases and heart: Unremarkable. Liver: Liver is enlarged measuring 17.4 cm with steatosis. Gallbladder and biliary tree: Spleen: No splenomegaly. Pancreas: No pancreatic ductal dilation. Adrenals: No adrenal nodule. Kidneys and ureters: No hydronephrosis. No renal cystic lesion which requires follow up. No solid mas s. Bowel and peritoneum: No bowel distension. No pathologic free fluid. . Lymph nodes: No central or retroperitoneal adenopathy. Vessels: No infrarenal aortic aneurysm. PELVIS Reproductive organs: Uterus is lobulated suggestive of fibroids, unchanged.. Bladder: No abnormal wall thickening, accounting for underdistension. Pelvic lymph nodes: No pelvic adenopathy by size criteria. Bones: No aggressive osseous abnormality. Other: No inguinal hernia. Trace fat-containing ventral hernia. IMPRESSION: Trace fat-containing ventral hernia. Hepatomegaly with steatosis. Reviewed by: Kimi Betts MD on 03/17/2023 8:44 PM PDT Approved by: Kimi Betts MD on 03/17/2023 8:44 PM PDT Station ID: [id number]
== END 2023-03-17 21:07 | disposition home or self-care (01) ==
LOC: ED 19:10
DX: K42.9 Umbilical hernia without obstruction or gangrene (principal); I10 Essential (primary) hypertension
CPT/HCPCS: 36415; 74177; 80053; 83690; 84703; 85025; 99283; 99284; Q9967

== ENCOUNTER 2023-04-18 10:18 | Outpatient (CLI) | payer OTHER ==
--- NOTE | 2023-04-19 08:41 | XRAY Report ---
PROCEDURE: Lumbar Spine 2 View INDICATIONS: LOW BACK PAIN TECHNIQUE: 2 views of the lumbar spine were acquired. COMPARISON: X-ray lumbar spine, 01/26/2016. FINDINGS: Bones: 5 [id number]-[id number] vertebrae are present. There is 27 degrees levoscoliosis with apex at L3. No vertebral body compression fractures. No suspicious bony lesions. Mild diffuse degenerative dis c and facet disease throughout the lumbar spine. Soft tissues: Overlying bowel gas pattern is normal. No suspicious soft tissue calcifications. IMPRESSION: 1. 27 degree levoscoliosis. 2. Mild degenerative disc and facet disease in lumbar spine. Reviewed by: Kirk Soto MD on 04/19/2023 8:39 AM PDT Approved by: Kirk Soto MD on 04/19/2023 8:39 AM PDT Station ID: [id number]
== END 2023-04-18 10:19 | disposition home or self-care (01) ==
LOC: DI 10:18
PROVIDERS: ATTEND Student in an Organized Health Care Education/Training Program
DX: M47.816 Spondylosis without myelopathy or radiculopathy, lumbar region (principal); M51.36 Other intervertebral disc degeneration, lumbar region

== ENCOUNTER 2023-06-02 08:47 | Outpatient (CLI) | payer OTHER ==
--- NOTE | 2023-06-03 11:42 | Mammography Report ---
BILATERAL DIGITAL SCREENING MAMMOGRAM 3D/2D: 06/02/2023 CLINICAL: Routine screening. Comparison is made to exams dated: 08/01/2012 mammogram and 07/28/2009 mammogram - [facility]. There are scattered areas of fibroglandular density in both breasts (category b / 25%-50% glandular t issue). No significant masses, calcifications, or other findings are seen in either breast. There has been no significant interval change. IMPRESSION: NEGATIVE There is no mammographic evidence of malignancy. A 1 year screening mammogram is recommended. Based on the Tyrer Cuzick model (a risk assessment model) the patients lifetime risk is 9.5% and her 10 year risk is 2.6%. According to the ACR, ACS, and NCCN guidelines, an annual breast MRI exam rene g with mammogram is recommended if the patients lifetime risk is 20% or greater. This exam was interpreted at Station ID: [id number]. NOTE: For mammograms, a report in lay terms will be sent to the patient. Approximately 15% of breast malignancies will not be visualized mammographically. In the management of a palpable breast mass, a negative mammogram must not discourage biopsy of a clinically suspicious lesion. Electronically Signed By: Ike winslow/anna:06/02/2023 11:40:11 letter sent: No_Letter ACR BI-RADS Category 1: Negative 3341F PARENCHYMAL PATTERN: (A) - The breast(s) demonstrate(s) scattered fibroglandular densities. BI-RADS CATEGORY: (1) - 1 Mammogram [id number] 1 year screening LATERALITY: (B)
== END 2023-06-02 08:48 | disposition home or self-care (01) ==
LOC: DI 08:47
PROVIDERS: ATTEND Nurse Practitioner Family
DX: Z12.31 Encounter for screening mammogram for malignant neoplasm of breast (principal)

== ENCOUNTER 2023-08-05 09:08 | Outpatient (CLI) | payer OTHER ==
[2023-08-05 09:42] LABS: ALBUMIN 4.3 g/dL (3.2-5.5); ALBUMIN/GLOBULIN RATIO 1.8 (1.0-2.2); BILIRUBIN,TOTAL 0.4 mg/dL (0.2-1.0); CALCIUM 9.4 mg/dL (8.5-10.3); CREATININE 0.8 mg/dL (0.6-1.3); TOTAL PROTEIN 6.7 g/dL (6.4-8.9)
[2023-08-05 09:57] LABS: THYROID STIMULATING HORMONE 0.61 uIU/mL (0.34-5.60)
[2023-08-05 11:35] LABS: ESTIMATED AVERAGE GLUCOSE 123 mg/dL (70-100); HEMOGLOBIN A1c% 5.9 % (4.27-6.07)
[2023-08-06 07:09] LABS: HCV AB Non Reactive (Non Reactive)
== END 2023-08-05 09:09 | disposition home or self-care (01) ==
LOC: LAB 09:08
PROVIDERS: ATTEND Nurse Practitioner Family
DX: R73.9 Hyperglycemia, unspecified (principal); E04.1 Nontoxic single thyroid nodule; Z11.59 Encounter for screening for other viral diseases
CPT/HCPCS: 36415; 80053; 83036; 84439; 84443; 84480; 86803

== ENCOUNTER 2023-09-14 08:43 | Outpatient (CLI) | payer OTHER ==
[2023-09-16 17:08] LABS: ANTINUCLEAR ANTIBODIES IFA Negative (.)
== END 2023-09-14 08:44 | disposition home or self-care (01) ==
LOC: LAB 08:43
PROVIDERS: ATTEND Nurse Practitioner
DX: L71.8 Other rosacea (principal)
CPT/HCPCS: 36415; 86038

== ENCOUNTER 2023-12-05 07:48 | Outpatient (CLI) | payer OTHER ==
[2023-12-05 08:15] LABS: ALBUMIN 4.3 g/dL (3.2-5.5); ALBUMIN/GLOBULIN RATIO 1.7 (1.0-2.2); ALKALINE PHOSPHATASE 55 IU/L (42-121); ALT ALANINE AMINOTRANSFERASE 16 IU/L (10-60); AST ASPARTATE AMINOTRANSFERASE 16 IU/L (10-42); BILIRUBIN,TOTAL 0.6 mg/dL (0.2-1.0); BUN - BLOOD UREA NITROGEN 16 mg/dL (6-20); CALCIUM 9.6 mg/dL (8.5-10.3); CARBON DIOXIDE - CO2 30 mmol/L (21-32); CHLORIDE 104 mmol/L (101-111); CHOL/HDL RATIO 4.4 (<4.4); CHOLESTEROL 218 mg/dL; CREATININE 0.8 mg/dL (0.6-1.3); GFR - MDRD 75 (>89); GLUCOSE 129 mg/dL (74-104); HDL CHOLESTEROL 50 mg/dL; LDL CHOLESTEROL,CALCULATED 122 mg/dL; LDL/HDL RATIO 2.4 (<4.4); POTASSIUM 4.3 mmol/L (3.5-4.5); SODIUM 138 mmol/L (135-145); TOTAL PROTEIN 6.9 g/dL (6.4-8.9); TRIGLYCERIDES 232 mg/dL (48-352); VLDL CHOLESTEROL 46 mg/dL
[2023-12-05 11:18] LABS: ESTIMATED AVERAGE GLUCOSE 120 mg/dL (70-100); HEMOGLOBIN A1c% 5.8 % (4.27-6.07)
== END 2023-12-05 07:49 | disposition home or self-care (01) ==
LOC: LAB 07:48
PROVIDERS: ATTEND Nurse Practitioner Family
DX: E78.5 Hyperlipidemia, unspecified (principal); R73.9 Hyperglycemia, unspecified
CPT/HCPCS: 36415; 80053; 80061; 83036; 83721